=== PATIENT | female | born 1985 | race Asian ===

== ENCOUNTER 2019-02-11 11:46 | Observation (INO) | payer OTHER ==
[~2019-02-11] VITALS: Ht 167.6 cm; Wt 80.7 kg
[2019-02-11] MEDS ORDERED: PREN-380 PO (12:35)
== END 2019-02-11 14:40 | disposition home or self-care (01) ==
LOC: MLD 11:46
PROVIDERS: ADMIT Obstetrics & Gynecology; ATTEND Obstetrics & Gynecology
DX: O36.8130 Decreased fetal movements, third trimester, not applicable or unspecified (principal); Z3A.36 36 weeks gestation of pregnancy
CPT/HCPCS: 76815; G0378; Q0092; 59025; 81000